=== PATIENT | male | born 1950 | race Caucasian/White ===

== ENCOUNTER → 2020-01-29 | Outpatient (CLI) | payer OTHER, MEDICARE | LOC: SJCVC 11:14 | PROVIDERS: ATTEND Internal Medicine Cardiovascular Disease | DX: I48.21 Permanent atrial fibrillation (principal); I45.10 Unspecified right bundle-branch block; R94.31 Abnormal electrocardiogram [ECG] [EKG]; I25.10 Atherosclerotic heart disease of native coronary artery without angina pectoris; E78.00 Pure hypercholesterolemia, unspecified; E11.9 Type 2 diabetes mellitus without complications; D68.59 Other primary thrombophilia; I10 Essential (primary) hypertension; K75.81 Nonalcoholic steatohepatitis (NASH); K74.60 Unspecified cirrhosis of liver; K21.9 Gastro-esophageal reflux disease without esophagitis; M19.90 Unspecified osteoarthritis, unspecified site; E66.9 Obesity, unspecified; Z79.84 Long term (current) use of oral hypoglycemic drugs; Z79.4 Long term (current) use of insulin; Z82.49 Family history of ischemic heart disease and other diseases of the circulatory system; Z79.899 Other long term (current) drug therapy ==

== ENCOUNTER 2020-05-05 06:07 | Inpatient (IN) | payer OTHER, MEDICARE ==
[~2020-05-05] VITALS: Ht 177.8 cm; Wt 117.9 kg
[2020-05-05] VITALS (7 sets, daily range): BP systolic 99–127; BP diastolic 59–70
[2020-05-05 09:36] LABS: HEMATOCRIT 36.8 % (42.0-52.0); HEMOGLOBIN 12.2 gm/dL (14.0-18.0); MCH 27.7 pg (26.0-34.0); MCHC 33.1 g/dL (28.0-37.0); MCV 83.7 fL (80.0-100.0); RBC 4.39 mil/uL (4.50-6.00); RDW 16.6 % (10.5-14.5)
[2020-05-05 10:18] LABS: CALCIUM 9.2 mg/dL (8.5-10.1); CREATININE 0.8 mg/dL (0.7-1.3); POTASSIUM 4.1 mmol/L (3.5-5.1); TOTAL BILIRUBIN 0.8 mg/dL (0.2-1.0); TOTAL PROTEIN 7.9 g/dL (6.4-8.2)
--- NOTE | 2020-05-05 18:56 | NUR ---
PT CARE ASSUMED AT APPROX 0830 AFTER TRANSFER FROM [facility]. ASSESSMENTS CHARTED. MEDICATION CHARTED. A FIB. CARDIZEM DRIP UNTIL IT RAN OUT AT 0900; THEN PO. ACHS. NPO AFTER 0000. UP AD ROBERT. CONTACTED POLYMER SCIENTIST ATTEMPTING TO CONTACT HOSPITALIST IN CHARGE.
[2020-05-05] MEDS ORDERED: ALPRAZOLAM XR3 MG (19:44)
[2020-05-05] MEDS ORDERED: ATENOLOL 100MG100 MG (19:50)
[2020-05-05] MEDS ORDERED: LIPITOR10 MG (19:51)
[2020-05-05] MEDS ORDERED: LOTENSIN10 MG (19:52)
[2020-05-05] MEDS ORDERED: HYDROCHLOROTHIA25 M2 (19:53)
[2020-05-05] MEDS ORDERED: METFORMIN HCL500 M3 (19:54)
[2020-05-05] MEDS ORDERED: OMEPRAZOLE 20 M20 M1 (19:55)
[2020-05-05] MEDS ORDERED: PIOGLITAZONE30 MG (19:55)
[2020-05-05] MEDS ORDERED: PRANDIN2 MG (19:57)
[2020-05-05] MEDS ORDERED: XARELTO20 MG (19:58)
[2020-05-05 21:43] LABS: CHOLESTEROL 119 mg/dL (<200); HDL CHOLESTEROL 45 mg/dL (>40); LDL CHOLESTEROL 49 mg/dL (<100); SERUM ASSESSMENT Clear; TC:HDL 2.6 Ratio (Not establshd); TRIGLYCERIDE 129 mg/dL (<150); VLDL 26 mg/dL (<40)
[2020-05-06 04:05] VITALS: BP 100/56
--- NOTE | 2020-05-06 06:16 | NUR ---
PT RESTING QUIETLY IN ROOM THRU THE NOC, NO C/O PAIN, VSS, REMAINS AFIB WITH RATE CONTROLLED, NPO SINCE MNOC FOR NUC. STRESS TEST, CLEANED UP AT SINK IN BATHROOM, HOPES TO GO HOME AFTER TEST, WILL CON'T TO MONITOR PER PPOC.
--- NOTE | 2020-05-06 07:14 | EKG ---
[facility] [place] [address] [place] [address] ELECTROCARDIOGRAM REPORT Name: VIC MORRISON Room #: 214-P ADM IN M.R.#: [id number] Admission: 05/05/20 Attend Phys: Mo Sage Discharge: Date of : 46 Report #: [id number] THIS REPORT FOR: cc: DALIA LARA Physician not on staff Isak Alvarez MD [facility] ~ THIS REPORT FOR: //name// [facility] Test Date: 2020-05-05 Test Time: 09:10:09 Pat Name: VIC MORRISON Department: Room: 214 P Gender: M Delivery Room Supervisor: [facility] : 1950 Requested By: Suzette Garces Order Number: [id number] : Isak Alvarez Measurements Intervals [place] Rate: 98 P: [place]: QRS: 30 QRSD: 101 T: 27 QT: 377 QTc: 482 Interpretive Statements Atrial fibrillation Ventricular premature complex Inferior infarct, old No previous ECG available for comparison Electronically Signed On 05-06-2020 7:14:10 [employer]EN[employer] APPRENTICE by Isak Alvarez [email or web address] <ELECTRONICALLY SIGNED> By: Isak Alvarez MD, FACC 05/06/20 0714 Isak Alvarez MD, FAC /EPI
[2020-05-06 07:40] VITALS: BP 102/57
--- NOTE | 2020-05-06 09:29 | 2DMMODE ---
[facility] [place] [address] 2 D/M-MODE ECHOCARDIOGRAM Name: VIC MORRISON Room #: 214-P ADM IN M.R.#: [id number] Admission: 05/05/20 Attend Phys: Mo Sage Discharge: Date of : 46 Report #: [id number] THIS REPORT FOR: cc: DALIA LARA Physician not on staff Robles Ortega MD [facility] ~ APPROVED REPORT Study performed: 05/06/2020 08:17:55 EXAM: Comprehensive 2D, Doppler, and color-flow Echocardiogram Patient Location: Bedside Room #: 214 Status: routine BSA: 2.33 HR: 75 bpm BP: 102/57 mmHg Rhythm: Atrial Fibrillation Other Information Study Quality: Good Indications Atrial Fibrillation CAD Chest Pain Hypertension/HDD 2D Dimensions RVDd: 45.14 mm IVSd: 14.95 (7-11mm) LVOT Diam: 23.94 (18-24mm) LVDd: 45.61 mm PWd: 15.43 (7-11mm) Ascending Ao: 32.90 (22-36mm) LVDs: 31.53 (25-40mm) Aortic Root: 31.41 mm IVC: 18.00 mm Volumes Left Atrial Volume (Systole) Single Plane 4CH: 80.75 mL Single Plane 2CH: 84.60 mL LA ESV Index: 39.00 mL/m2 Aortic Valve AoV Peak Zach.: 1.19 m/s AO Peak Gr.: 5.63 mmHg LVOT Max P.23 mmHg [facility] [address] [place] [address] 2 D/M-MODE ECHOCARDIOGRAM Name: PRINCEVIC Taj Room #: 214-P [facility] IN .R.#: [id number] Admission: 05/05/20 Attend Phys: Mo Blanchard Discharge: Date of : 46 Report #: [id number] LVOT Max V: 0.90 m/s RENATO Vmax: 3.41 cm2 Pulmonary Valve PV Peak Zach.: 0.81 m/s PV Peak Gr.: 2.62 mmHg Tricuspid Valve TR Peak Zach.: 2.14 m/s TR Peak Gr.: 18.32 mmHg PA Pressure: 23.00 mmHg Left Ventricle The left ventricle is normal size. There is normal LV segmental wall motion. Mild to moderate concentric left ventricular hypertrophy. The left ventricular systolic function is normal. The left ventricular ejection fraction is within the normal range. LVEF is 55-60%. This study is not technically sufficient to allow evaluation of the LV diastolic function due to atrial fibrillation. Right Ventricle Right ventricle is dilated. The right ventricular systolic function is normal. Atria Left atrium is dilated. Right atrium is dilated. Aortic Valve The aortic valve is trileaflet, mildly sclerotic. No aortic regurgitation is present. There is no aortic valvular stenosis. Mitral Valve Mild mitral annular calcification Mild mitral regurgitation. No evidence of mitral valve stenosis. Tricuspid Valve The tricuspid valve is normal in structure. There is trace tricuspid regurgitation. Estimated PAP 23 mmHg. There is no pulmonary hypertension. Pulmonic Valve The pulmonary valve is normal in structure. Trace pulmonic regurgitation. Great Vessels The aortic root is normal in size. IVC is normal in size and [facility] [address] [place] [address] 2 D/M-MODE ECHOCARDIOGRAM Name: VIC MORRISON Room #: 214-P [facility] IN [facility].#: [id number] Admission: 05/05/20 Attend Phys: Mo Fang [facility] Discharge: Date of : 46 Report #: [id number] collapses >50% with inspiration. Pericardium There is no pericardial effusion. <Conclusion> The left ventricular systolic function is normal. There is normal LV segmental wall motion. LVEF is 55-60%. Both atria dilated. The aortic valve is trileaflet, mildly sclerotic. No aortic regurgitation or stenosis Mild mitral annular calcification. Mild mitral regurgitation. There is trace tricuspid regurgitation. Estimated pulmnary artery pressure of 23 mmHg. There is no pericardial effusion. <ELECTRONICALLY SIGNED> By: Robles Ortega MD, [facility] 05/06/20927 7 0928 Robles Ortega MD, FACC /INF
[2020-05-06 13:58] VITALS: BP 102/57
--- NOTE | 2020-05-06 14:12 | NUR ---
ASSESSMENT CHARTED, ALERT AND ORIENTED X4. DISCHARGE AND MEDICATION INSTRUCTIONS GIVEN TO PATIENT AND HE VERBALIZED UNDERSTANDING. PATIENT WILL BE DISCHARGED WITH SPOUSE WHEN SHE GETS HERE.
[2020-05-07 00:06] LABS: GLYCOHEMOGLOBIN (HGB A1C) 5.5 % (4.8-5.6)
== END 2020-05-06 15:14 | disposition home or self-care (01) | DRG 309 ==
LOC: 2N 06:07
PROVIDERS: Nurse Practitioner Adult Health; Nurse Practitioner Family; ADMIT Hospitalist; ATTEND Hospitalist
DX: I48.21 Permanent atrial fibrillation (principal); D68.59 Other primary thrombophilia; I25.10 Atherosclerotic heart disease of native coronary artery without angina pectoris; E11.9 Type 2 diabetes mellitus without complications; I10 Essential (primary) hypertension; E78.00 Pure hypercholesterolemia, unspecified; K21.9 Gastro-esophageal reflux disease without esophagitis; Z96.651 Presence of right artificial knee joint; K76.0 Fatty (change of) liver, not elsewhere classified; E78.5 Hyperlipidemia, unspecified; K74.60 Unspecified cirrhosis of liver; E66.9 Obesity, unspecified; Z68.37 Body mass index [BMI] 37.0-37.9, adult
CPT/HCPCS: 10081

== ENCOUNTER → 2020-10-29 | Outpatient (CLI) | payer OTHER, MEDICARE ==
[~2020-10-29] MED LIST: ALPRAZOLAM XR3 MG; ATENOLOL 100MG100 MG; HYDROCHLOROTHIA25 M2; LIPITOR10 MG; LOTENSIN10 MG; METFORMIN HCL500 M3; OMEPRAZOLE 20 M20 M1; PIOGLITAZONE30 MG; PRANDIN2 MG; XARELTO20 MG
== END ==
LOC: SJCVCIMAG 08:52
PROVIDERS: ATTEND Internal Medicine Cardiovascular Disease
DX: I48.21 Permanent atrial fibrillation (principal); I25.10 Atherosclerotic heart disease of native coronary artery without angina pectoris; E11.9 Type 2 diabetes mellitus without complications; G47.33 Obstructive sleep apnea (adult) (pediatric); Z86.79 Personal history of other diseases of the circulatory system; I10 Essential (primary) hypertension; F41.9 Anxiety disorder, unspecified; E78.00 Pure hypercholesterolemia, unspecified; Z79.4 Long term (current) use of insulin; Z79.899 Other long term (current) drug therapy

== ENCOUNTER → 2020-10-31 | Outpatient (CLI) | payer OTHER, MEDICARE | LOC: SJCVC 16:26 | PROVIDERS: ATTEND Internal Medicine Cardiovascular Disease | DX: R94.31 Abnormal electrocardiogram [ECG] [EKG] (principal); I48.19 Other persistent atrial fibrillation; E11.9 Type 2 diabetes mellitus without complications; I10 Essential (primary) hypertension; E78.5 Hyperlipidemia, unspecified; E66.9 Obesity, unspecified; Z68.38 Body mass index [BMI] 38.0-38.9, adult; Z88.5 Allergy status to narcotic agent; Z88.2 Allergy status to sulfonamides; Z79.899 Other long term (current) drug therapy; Z72.89 Other problems related to lifestyle ==

== ENCOUNTER → 2020-12-12 | Outpatient (CLI) | payer OTHER, MEDICARE | LOC: SJCVC 14:23 | PROVIDERS: ATTEND Internal Medicine Cardiovascular Disease | DX: R94.31 Abnormal electrocardiogram [ECG] [EKG] (principal); I48.21 Permanent atrial fibrillation; E11.9 Type 2 diabetes mellitus without complications; I10 Essential (primary) hypertension; E78.5 Hyperlipidemia, unspecified; E66.9 Obesity, unspecified; I25.10 Atherosclerotic heart disease of native coronary artery without angina pectoris; K21.9 Gastro-esophageal reflux disease without esophagitis; M19.90 Unspecified osteoarthritis, unspecified site; Z79.899 Other long term (current) drug therapy; Z79.4 Long term (current) use of insulin; Z88.2 Allergy status to sulfonamides; Z88.5 Allergy status to narcotic agent; Z72.89 Other problems related to lifestyle ==

== ENCOUNTER → 2021-05-22 | Outpatient (CLI) | payer OTHER, MEDICARE | LOC: SJCVC 13:46 | PROVIDERS: ATTEND Internal Medicine Cardiovascular Disease | DX: R94.31 Abnormal electrocardiogram [ECG] [EKG] (principal); I48.21 Permanent atrial fibrillation; I25.10 Atherosclerotic heart disease of native coronary artery without angina pectoris; E11.9 Type 2 diabetes mellitus without complications; D68.59 Other primary thrombophilia; I10 Essential (primary) hypertension; E78.00 Pure hypercholesterolemia, unspecified; Z79.4 Long term (current) use of insulin; Z72.89 Other problems related to lifestyle; Z79.899 Other long term (current) drug therapy; Z88.2 Allergy status to sulfonamides; Z88.8 Allergy status to other drugs, medicaments and biological substances ==